=== PATIENT | male | born 1965 | race Asian ===

== ENCOUNTER 2022-01-28 14:34 | Emergency (ER) | payer OTHER ==
[~2022-01-28] VITALS: Ht 175.3 cm; Wt 69.0 kg
[2022-01-28 14:36] VITALS: BP 153/96
[2022-01-28] MEDS ORDERED: ASPIRIN 325MG EC TABLET PO ONE (15:45)
[2022-01-28 15:59] LABS: BASOPHILS % 0.5 % (0.0-2.0); EOSINOPHILS % 0.6 % (0.0-5.0); HEMATOCRIT. 48.6 % (42.0-52.0); HEMOGLOBIN. 17.1 g/dL (14.0-18.0); LYMPHOCYTES % 15.1 % (20.0-50.0); MEAN CORPUSCULAR HEMOGLOBIN 31.2 pg (28.0-32.0); MEAN PLATELET VOLUME 7.6 fl (7.4-10.4); MONOCYTES % 3.9 % (2.0-8.0); NEUTROPHILS % 79.9 % (40.0-76.0); PLATELET 169 x1000/uL (130-400); RED BLOOD CELL COUNT 5.47 mill/uL (4.7-6.1); RED CELL DISTRIBUTION WIDTH 12.9 % (11.6-14.6)
[2022-01-28 16:07] LABS: CHLORIDE 108 mEq/L (98-107)
[2022-01-28] MEDS ORDERED: MAGNESIUM/ALUMINUM HYDROXIDE/SIMETHICONE 30ML UDC PO ONE (16:30)
== END 2022-01-28 18:56 ==
LOC: ER 14:34
DX: R07.89 Other chest pain (principal); E78.00 Pure hypercholesterolemia, unspecified; Z86.79 Personal history of other diseases of the circulatory system
CPT/HCPCS: 36415; 71045; 80053; 83880; 84484; 85025; 93005; 99285